=== PATIENT | female | born 1950 | race Caucasian/White ===

== ENCOUNTER 2016-08-22 18:57 | Inpatient (IN) | payer MEDICARE, OTHER ==
[2016-08-22] MEDS ORDERED: Aspirin 81mg Chewable Tab PO ONE (19:24)
[2016-08-22] MEDS ORDERED: Aspirin 81mg Chewable Tab ONE (19:30)
--- NOTE | 2016-08-22 19:36 | ED Physician Chart ---
Chief Complaint/HPI - Patient Information Date Seen:: 08/22/16 Time Seen:: 19:15 Chief Complaint:: CHEST PAIN X 3-4 HOURS History of Present Illness:: This 66-year-old female presents to the emergency department complaining of acute chest pain that began approximately 3-4 hours prior to her arrival. The pain is localized to the lower substernal area and radiates into her back. The course of the last 3-4 hours the pain has waxed and waned and is currently rated as an 8/10 in severity. The character of the pain is a pressure. She was unable to identify any precipitating, exacerbating or relieving factors. The patient has never experienced similar pain in the past and has never been to an emergency department with a complaint of chest pain. She has a past medical history of hypertension, lupus, rheumatoid arthritis and polymyositis. Patient is not diabetic and is unaware of any cholesterol problems or hyperlipidemia. She does not smoke or use alcohol. Over the past 2 days the patient has had nausea and diaphoresis which continued into today as well she has experienced no vomiting but does have decreased appetite. The patient has felt warm over the past 2 days but has not taken her temperature. There is no pleuritic component to the patient's chest pain. Allergies:: Allergies Allergy/AdvReac Type Severity Reaction Status Date / Time No Known Allergies Allergy Verified 08/22/16 19:06 Vitals:: Vital Signs - 8 hr 08/22/16 08/22/16 19:06 19:07 Temp 97.6 F HR 99 RR 17 BP 195/115 194/115 O2 Sat % 100 <Nicho Kauffman - Last Filed: 08/22/16 19:54> - Patient Information Allergies:: Allergies Allergy/AdvReac Type Severity Reaction Status Date / Time No Known Allergies Allergy Verified 08/22/16 19:06 Vitals:: Vital Signs - 8 hr 08/22/16 08/22/16 08/22/16 19:06 19:07 19:37 Temp 97.6 F HR 99 103 RR 17 BP 195/115 194/115 195/111 O2 Sat % 100 08/22/16 08/22/16 19:44 19:45 Temp HR 98 98 RR 16 BP 160/88 160/88 O2 Sat % 96 <Lam Lombardo - Last Filed: 08/22/16 20:35> Review of Systems - Review of Systems General/Constitutional: Chills, Weakness, Diaphoresis, No edema Skin: No skin lesions, No rash, No bruising Head: No headache, No light-headedness Eyes: No loss of vision, No diplopia ENT: No earache, No nasal drainage, Sore throat, No tinnitus Neck: Neck pain, No neck pain, No swelling, No thyromegaly, No stiffness, Mass noted Cardio Vascular: Chest pain, Palpitations Pulmonary: Cough, No sputum, No wheezing, Other (the patient has mild if any respiratory distress.) GI: Nausea, No vomiting, No diarrhea, No pain G/U: No dysuria, No frequency, No hematuria 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 Musculoskeletal: Back pain, Muscle pain, Other (the patient has rheumatoid arthritis with generalized joint pain.) Allergic/Immuno: No urticaria, No angioedema Neurological: No syncope, No focal symptoms, Weakness (weakness is generalized.) , No paresthesia, No headache, No seizure, No confusion, No vertigo <Nicho Kauffman - Last Filed: 08/22/16 19:54> Past Medical History - Past Medical History Past Medical History: Arthritis, Other (see HPI for past medical history.) Social History: Non Smoker, No Alcohol, No Drug Use, Other (patient has undergone lung biopsy.) Surgical History: Cholecystectomy Medication: Reviewed <Nicho Kauffman - Last Filed: 08/22/16 19:54> Family Medical History - Family Member Mother History Unknown: Yes Ethnicity: <Nicho Kauffman - Last Filed: 08/22/16 19:54> Physical Exam - Physical Examination General/Constitutional: Awake, Well-developed, well-nourished, Alert, GCS 15, Non-toxic appearing, Ambulatory Other Gen/Cons comments:: Patient appears to be in moderate discomfort secondary to her complaint of chest pain. Head: Atraumatic Eyes: Lids, conjuctiva normal, PERRL, EOMI Other Eyes comments:: No arcus. Skin: No rash, No skin lesions, No ecchymosis, No lymphadenopathy Other Skin comments:: Diaphoretic. ENMT: External ears, nose nl, Nasal exam nl, Lips, teeth, gums nl, Oropharynx nl , Tonsils nl Neck: Nontender, No JVD, No nuchal rigidity, No mass, No stridor Respiratory: Nl effort/Exclusion Other Respiratory comments:: Patient has coarse rhonchi in the right lung base. Cardio Vascular: RRR, No murmur, gallop, rubs, NL S1 S2 Other Cardio Vascular comments:: Excellent pulses in all 4 extremities. GI: No tenderness/rebounding/guarding, No organomegaly, No hernia, Normal BS's, Nondistended, No mass/bruits, No McBurney tenderness : No CVA tenderness (patient has mild calf tenderness bilaterally with negative Homans signs. No peripheral edema.) Extremities: Full ROM, normal strength in all extremities, No edema Neuro/Psych: Alert/oriented, Normal sensory exam, Normal motor strength, Judgement/insight normal, Mood normal, No focal deficits Misc: Normal back, No paraspinal tenderness <Nicho Kauffman - Last Filed: 08/22/16 19:54> Labs/Radiology/EKG Results - EKG Interpretations Rhythm: normal sinus rhythm with no ectopy. [place]: axis is normal. Rate: 96 Comments:: No Q waves or ST segment elevation or depression. Impression: No acute ischemic findings. <Nicho Kauffman - Last Filed: 08/22/16 19:54> - Lab Results Results: Laboratory Tests 08/22/16 08/22/16 08/22/16 19:39 19:39 19:39 WBC 5.5 RBC 5.15 Hgb 11.1 L Hct 34.7 L MCV 67.4 L MCH 21.6 L MCHC Differential 32.0 RDW 13.9 Plt Count 242 MPV 8.0 Sodium 120 L Potassium 3.4 L Chloride 86 L Carbon Dioxide 25.8 Anion Gap 11.6 BUN 9 Creatinine 0.3 L Est GFR ( Amer) > 60.0 Est GFR (Non-Af Amer) > 60.0 BUN/Creatinine Ratio 30.0 Glucose 123 H Calcium 9.3 Troponin I 0.01 B-Natriuretic Peptide 41.3 - Radiology Results Results: Single AP VIEW Portable Chest X-ray was interpreted independently and contemporaneously by Jon Lombardo MD: No cardiomegaly Normal mediastinum No lung infiltrates No pneumothorax No soft tissue or bony abnormalities <Lam Lombardo - Last Filed: 08/22/16 20:35> ED Septic Shock - <6hrs of presentation: Vital Signs: Vital Signs - 8 hr 08/22/16 08/22/16 19:06 19:07 Temp 97.6 F HR 99 RR 17 BP 195/115 194/115 O2 Sat % 100 <Nicho Kauffman - Last Filed: 08/22/16 19:54> - . Is Septic Shock (SBP<90, OR Lactate>4 mmol\L) present?: No - <6hrs of presentation: Vital Signs: Vital Signs - 8 hr 08/22/16 08/22/16 08/22/16 19:06 19:07 19:37 Temp 97.6 F HR 99 103 RR 17 BP 195/115 194/115 195/111 O2 Sat % 100 08/22/16 08/22/16 19:44 19:45 Temp HR 98 98 RR 16 BP 160/88 160/88 O2 Sat % 96 <Lam Lombardo - Last Filed: 08/22/16 20:35> Reassessment (Disposition) - Reassessment Reassessment:: Handed off to me at change of shift Patient has chest pain rule out ACS. Pain has improved after receiving 2 sublingual nitroglycerin. Initial troponins are unremarkable. Patient has sodium of 120. She is taking hydrochlorothiazide. This is most likely the cause of her hyponatremia. Discussed case with a physician who will admit to his service for further workup and treatment. Patient to be admitted with severe hyponatremia. - Diagnosis Diagnosis:: Chest pain rule out ACS Hyponatremia, severe Hypertensive urgency - Patient Disposition Discharge/Transfer:: Acute Care w/in this hosp Admitted to:: Telemetry Admitting Medical Physician:: Bishnu Bass Time:: 20:31 Condition at Disposition:: Improved <Lam Lombardo - Last Filed: 08/22/16 20:35> ED Discharge Plan <Nicho Kauffman - Last Filed: 08/22/16 19:54> <Lam Lombardo - Last Filed: 08/22/16 20:35> - Patient Disposition Admit/Discharge/Transfer: Acute Care w/in this hosp Condition at Disposition: Stable
[2016-08-22 19:41] VITALS: BP 195/115
[2016-08-22] MEDS ORDERED: Labetalol 5 mg/mL 20 mL Vial IVP STA (19:42)
[2016-08-22 19:50] LABS: HEMATOCRIT 34.7 % (35.0-45.0); HEMOGLOBIN 11.1 gm/dL (11.7-16.1); MEAN CORPUSCULAR HEMOGLOBIN 21.6 pg (27.0-31.0); PLATELET COUNT 242 Th/cmm (150-400); RED BLOOD COUNT 5.15 Mil/cmm (3.80-5.20); RED CELL DISTRIBUTION WIDTH 13.9 % (11.5-20.0); WHITE BLOOD COUNT 5.5 Th/cmm (4.8-10.8)
[2016-08-22 19:54] LABS: MEAN CELL VOLUME 67.4 fl (81-100)
[2016-08-22 20:01] LABS: ANION GAP 11.6 (7.0-16.0); BUN - UREA NITROGEN 9 mg/dL (7-25); CALCIUM SERUM 9.3 mg/dL (8.6-10.3); CARBON DIOXIDE 25.8 mEq/L (21.0-31.0); CHLORIDE 86 mEq/L (98-107); CREATININE - SERUM 0.3 mg/dL (0.6-1.2); GLUCOSE 123 mg/dL (70-105); POTASSIUM SERUM 3.4 mEq/L (3.5-5.1)
[2016-08-22 20:02] LABS: TROP I 0.01 ng/mL (0.01-0.05)
[2016-08-22 20:11] LABS: SODIUM SERUM 120 mEq/L (136-145)
[2016-08-22 20:12] LABS: BNP 41.3 pg/mL (5.0-100.0)
[2016-08-22] MEDS ORDERED: Sodium Chloride 0.9% 1,000 ML IV ONE (20:29)
[2016-08-22 20:30] LABS: ANISOCYTOSIS 1+; EOSINOPHIL 3 % (0-5); MICROCYTOSIS 2+; NEUTROPHILS 74 % (40-80); PLATELET MORPHOLOGY NORMAL (NORMAL); TOTAL CELLS COUNTED 100
[2016-08-22 20:31] LABS: PLATELET ESTIMATE ADEQUATE (NORMAL)
--- NOTE | 2016-08-22 21:33 | Admit Criteria Form ---
Admit Criteria Forms - Admit Criteria Diagnosis: CHEST PAIN Clinical Indications for Admission to Inpatient Care (Place 'X' for any and all applicable criteria): Admission is indicated for chest pain and ANY ONE of the following(1)(2)(3)(4)(5 ): [X]I. Angina with acute coronary syndrome (Also use Myocardial Infarction or Angina guideline) [ ]II. Hemodynamic instability [ ]III. Angina needing acute intervention as indicated by ALL of the following( 11)(12): [ ]a) Unstable angina is present as indicated by angina that is ANY ONE of the following: [ ]i) New onset [ ]ii) Nocturnal [ ]iii) Prolonged at rest [ ]iv) Progressive [ ]b) Angina warrants acute intervention as indicated by ANY ONE of the following: [ ]i) Recurrent angina (e.g, not responding as previously to treatment) [ ]ii) Angina at rest or with low-level activities despite initial medical therapy [ ]iii) New or presumably new ST-segment depression on ECG [ ]iv) Signs or symptoms of heart failure (eg, dyspnea, pulmonary edema) [ ]v) New or worsening mitral regurgitation [ ]vi) Hemodynamic instability [ ]vii) Dangerous arrhythmia (eg, sustained ventricular tachycardia) [ ]viii) History of percutaneous coronary intervention within 6 months [ ]ix) History of coronary artery bypass graft surgery [ ]x) THAIS risk score of 2 or greater[A] [ ]xi) History of Diabetes(14) [ ]xii) High-risk cardiac ischemia findings on noninvasive testing (e.g, echocardiogram, treadmill testing, nuclear scan) [ ]xiii) Chronic renal insufficiency (ie, estimated GFR less than 60 mL/min/1.732m) [ ]xiv) Left ventricular ejection fraction less than 40% [ ]IV. Evidence of RI (eg, cardiac biomarkers positive, ST-segment elevation on ECG) also use Myocardial Infarction Criteria Form. [ ]V. Pulmonary edema [ ]. Respiratory distress [ ]VII. Chest pain indicative of serious diagnosis other than coronary artery disease (eg, aortic dissection) [ ]VIII. Contraindications and/or Inappropriate clinical situations for Observational Care in patients with Chest Pain, when ANY ONE of the following is required: [ ]a) Patient with risk factor for pulmonary embolism, acute coronary syndrome and myocardial infarction (18) [ ]b) Patient with Pulmonary embolism require an average LOS of 4.3 days, therefore emergency department observation management is inappropriate 18,23 [ ]c) Painful condition/s in the elderly, have the highest rate of recidivism after emergency department observation management (10.8%) 20,21,22 [ ]d) Elevated cardiac biomarker requires intensive and exhaustive care (19) [ ]IX. General contraindications and/or Inappropriate clinical situations for Observational Care in patients with Chest Pain, when ANY ONE of the following is required: [ ]a) Prediction of prolongation of LOS based on ANY ONE of the following may be considered as a contraindication for observational care 2, 3, 4, 5, 6, 7, 8, 9, 10, 11 [ ]i) Age > 65 yrs. [ ]ii) Patient arriving by ambulance [ ]iii) Patient with high acuity [ ]iv) Patient requiring vital sign monitoring [ ]v) Patient on IV medication [ ]b) Systolic blood pressures 180mmHg 3,12 [ ]c) Patient with altered mental status including delirium and other alteration of consciousness, (3) [ ]d) Patient whose discharge disposition will be to a custodial home or rehabilitation home should not be managed in Emergency Department Observation Unit. CMS rule requires 3 days hospital stay before such placement. 3,13 [ ]e) Patient with failure to thrive due to broad array of etiologies 3,16,17 [ ]f) Inability to ambulate 3,14 Extended stay beyond goal length of stay may be needed for (1)(28): [ ]a) Specific condition diagnosed after evaluation (eg, pulmonary embolism, aortic dissection) [ ]b) Unstable angina [ ]c) Continued suspicion of acute coronary syndrome with inability to complete needed cardiac evaluation (eg, patient clinically unable to undergo stress testing) [ ]d) Myocardial infarction (Contents from ANGINA and CHEST PAIN clinical indications for admission to inpatient care have been integrated in this form) The original [employer] content created by [employer] has been revised. The portions of the content which have been revised are identified through the use of italic text or in bold, and [email or web address] has neither reviewed nor approved the modified material. All other unmodified content is copyright [employer]. Please see references footnoted in the original [facility] edition 2016 Admit Criteria Met?: Yes
[2016-08-22] MEDS: Sodium Chloride 0.9% 1,000 ML IV SCH (22:15)
[2016-08-22] MEDS ORDERED: Hydrocodone/APAP 5mg/325mg Tab PO PRN (22:36)
[2016-08-22] MEDS ORDERED: Maalox 30 mL Cup PO PRN (22:36)
[2016-08-22] MEDS ORDERED: Magnesium Hydroxide (MOM) 30 mL UDC PO PRN (22:36)
[2016-08-22] MEDS ORDERED: Hydrocodone/APAP 10 mg/325 mg Tab PO PRN (22:36)
[2016-08-23 07:32] LABS: ANION GAP 10.4 (7.0-16.0); BUN - UREA NITROGEN 7 mg/dL (7-25); BUN/CREATININE RATIO 17.5; CALCIUM SERUM 8.8 mg/dL (8.6-10.3); CARBON DIOXIDE 26.6 mEq/L (21.0-31.0); CHLORIDE 96 mEq/L (98-107); CREATININE - SERUM 0.4 mg/dL (0.6-1.2); GLUCOSE 101 mg/dL (70-105); SODIUM SERUM 129 mEq/L (136-145)
[2016-08-23 08:29] LABS: HEMATOCRIT 33.1 % (35.0-45.0); HEMOGLOBIN 10.6 gm/dL (11.7-16.1); MEAN CORPUSCULAR HGB CONC 32.2 pg (28.0-36.0); MEAN PLATELET VOLUME 9.1 fl; PLATELET COUNT 241 Th/cmm (150-400); RED BLOOD COUNT 4.97 Mil/cmm (3.80-5.20); RED CELL DISTRIBUTION WIDTH 13.4 % (11.5-20.0); WHITE BLOOD COUNT 5.4 Th/cmm (4.8-10.8)
[2016-08-23 08:30] LABS: MEAN CELL VOLUME 66.5 fl (81-100); MEAN CORPUSCULAR HEMOGLOBIN 21.4 pg (27.0-31.0)
--- NOTE | 2016-08-23 09:45 | Diagnostic Imaging Report ---
Portable chest x-ray HISTORY: Pain The heart size is difficult to assess with portable technique in a poor inspiration, but appears generous. Atherosclerotic calcification seen in the aorta. Allowing for the poor inspiration, no focal pulmonary processes are seen. IMPRESSION: 1. Allowing for a poor inspiration, no acute focal pulmonary processes 2. Suggestion of generous heart size with atherosclerotic vascular changes
[2016-08-23 10:41] LABS: BAND NEUTROPHILE 8 % (0-10); EOSINOPHIL 2 % (0-5); NEUTROPHILS 68 % (40-80); TOTAL CELLS COUNTED 100
[2016-08-23 10:49] LABS: PLATELET ESTIMATE ADEQUATE (NORMAL); PLATELET MORPHOLOGY NORMAL (NORMAL)
[2016-08-23 10:50] LABS: ANISOCYTOSIS 1+; MICROCYTOSIS 3+; OVALOCYTES 1+; POIKILOCYTOSIS 1+
--- NOTE | 2016-08-23 14:03 | History & Physical ---
CHIEF COMPLAINT: Chest pain. HISTORY OF PRESENT ILLNESS: The patient is a 66-year-old female presented to the ER complaining of acute chest pain that began prior to arrival. The patient's pain is located in the left substernal area and radiates to her back. The patient states the pain wax and wane, and is 8/10 in nature. The pain is pressure like. The patient denies any aggravating or relieving factors. No prior history of chest pain in the past. The patient also complains of nausea and diaphoresis and decreased appetite. The patient complains of elevated temperature for last 2 days. ALLERGIES: No known allergies. MEDICATIONS: See medication reconciliation form. REVIEW OF SYSTEMS: See history of present illness. FAMILY HISTORY: Not pertinent. SOCIAL HISTORY: No reports of smoking, drinking or drug use. PAST MEDICAL HISTORY: Hypertension, lupus, rheumatoid arthritis, polymyositis. PAST SURGICAL HISTORY: Cholecystectomy. PHYSICAL EXAMINATION: GENERAL: The patient is awake, alert, nontoxic in appearance. VITAL SIGNS: On admission, temperature 97.6, pulse 99, blood pressure is 195/115, respiratory rate 17 and O2 sat 100%. GENERAL: The patient is awake, alert, nontoxic in appearance. HEENT: Normocephalic, atraumatic. Extraocular movements intact. Pupils are reactive to light. Oropharynx clear. NECK: Supple. No thyromegaly. No lymphadenopathy. RESPIRATORY: Clear. No wheeze or rhonchi. CARDIOVASCULAR: S1, S2. No murmurs, rubs, gallops. ABDOMEN: Soft, nontender, nondistended. Positive bowel sounds. GENITOURINARY: No CVA tenderness. No suprapubic tenderness. BACK: No midline tenderness. EXTREMITIES: Equal pulses bilaterally. No cyanosis, clubbing or edema. SKIN: Negative. PSYCHIATRIC: Negative. NEUROLOGIC: Cranial nerves intact. Sensation is intact. Motor is intact. Bilateral muscle strength normal. LABORATORY DATA: On admission are as follows: Hematology: WBC of 5.5, hemoglobin 8.1, hematocrit 24.7, platelet count of 242, 13% lymphocytes. Chemistry: Sodium is 120, potassium 3.4, chloride 86, bicarbonate 25, anion gap 11, BUN 9, creatinine 0.3. GFR is more than 60. Glucose 123, calcium 9.3. Troponin is 0.01. BNP is 41.3. RADIOLOGY: Chest x-ray shows no acute focal pulmonary process. Atherosclerotic vascular changes. IMPRESSION: 1. Chest pain. 2. Rule out acute coronary syndrome. 3. Hypertension (uncontrolled). 4. Systemic lupus erythematosus. 5. Rheumatoid arthritis. 6. Polymyositis. 7. History of cholecystectomy. 8. Anemia. 9. Hyponatremia. 10. Hypokalemia. 11. Hyperglycemia. PLAN: The patient admitted to telemetry unit, seen on admission by Dr. Hanane Bass. Cardiology consultation with Dr. Caron Bass. Endocrine consultation with Dr. Granados. We will obtain further labs and consultation needed. JOB# [id number] [facility]
[2016-08-23] MEDS: DEXTROMETHORPHAN PO PRN (17:18)
[2016-08-23] MEDS: GUAIFENESIN PO PRN (17:18)
[2016-08-24] MEDS: Sodium Chloride 0.9% 1,000 ML IV SCH ×2 (01:01→21:12)
[2016-08-24 07:36] LABS: HEMATOCRIT 30.9 % (35.0-45.0); HEMOGLOBIN 10.1 gm/dL (11.7-16.1); MEAN CORPUSCULAR HEMOGLOBIN 21.7 pg (27.0-31.0); MEAN CORPUSCULAR HGB CONC 32.6 pg (28.0-36.0); PLATELET COUNT 249 Th/cmm (150-400); RED BLOOD COUNT 4.64 Mil/cmm (3.80-5.20); RED CELL DISTRIBUTION WIDTH 13.9 % (11.5-20.0)
[2016-08-24 07:52] LABS: MEAN CELL VOLUME 66.6 fl (81-100); WHITE BLOOD COUNT 3.9 Th/cmm (4.8-10.8)
[2016-08-24 08:05] LABS: ALKALINE PHOSPHATASE 32 U/L (34-104); ANION GAP 10.9 (7.0-16.0); BILIRUBIN,TOTAL 0.9 mg/dL (0.3-1.0); BUN - UREA NITROGEN 9 mg/dL (7-25); CARBON DIOXIDE 25.6 mEq/L (21.0-31.0); CHLORIDE 99 mEq/L (98-107); CHOLESTEROL 147 mg/dL (<200); CREATININE - SERUM 0.3 mg/dL (0.6-1.2); GLUCOSE 99 mg/dL (70-105); MAGNESIUM 1.9 mg/dL (1.9-2.7); POTASSIUM SERUM 3.5 mEq/L (3.5-5.1); SGOT 21 U/L (13-39); SGPT/ALT 15 U/L (7-52); SODIUM SERUM 132 mEq/L (136-145); TRIGLYCERIDES 61 mg/dL (<150); URIC ACID 2.1 mg/dL (2.3-6.6)
[2016-08-24] MEDS: DEXTROMETHORPHAN PO PRN (09:04)
[2016-08-24] MEDS: GUAIFENESIN PO PRN (09:04)
[2016-08-24 09:42] LABS: BAND NEUTROPHILE 1 % (0-10); BASOPHIL 1 % (0-3); EOSINOPHIL 3 % (0-5); NEUTROPHILS 59 % (40-80); TOTAL CELLS COUNTED 100
[2016-08-24 09:43] LABS: ANISOCYTOSIS 1+; MICROCYTOSIS 3+; PLATELET ESTIMATE ADEQUATE (NORMAL); PLATELET MORPHOLOGY NORMAL (NORMAL)
[2016-08-24] MEDS: Atorvastatin Calcium 10 MG TAB PO SCH (21:13)
--- NOTE | 2016-08-24 22:02 | Cardiology ---
M-Mode measurements are as follows. The aortic root dimension end diastole is 2.6 cm. Aortic valve systolic stiffness is 1.7 cm. Left atrium dimension in systole is 2.4 cm. Right ventricular dimension looks normal. The EP septal separation is 0.5 cm. Mitral valve E to A ration is 0.59. Left ventricular dimension end diastole is 4.6 cm and end systole 2.9 cm with ejection fraction between 60% to 65%. LV posterior wall thickness in end diastole is 1.3 cm and intraventricular septal thickness in end diastole 1.4 cm. By measurements the cardiac output is 6.227 L/minute and the stroke index is 41.69 mL/square meter, left ventricular outflow tract systolic gradient is 6.66 mmHg and velocity is 1.29 meter per second. Left atrial measurements are normal. Aortic valve area Vmax is 1.36 cm2/meter square. Aortic valve peak gradient is 10.25 mmHg. Aortic valve area is 2.2 cm2. Mitral valve Vmax is 1.5 meter per second and Vmax is 1.0 meter per second. Mitral valve area looks normal. Tricuspid and pulmonic valves are also normal. M-Mode and 2D shows the LV dimension and second wall motions are normal. The aortic valve looks slightly sclerotic with acute function in diastole and systole. Mitral valve annulus is calcified. Leaflets are slightly thickened with normal function in diastole as well as in systole. Tricuspid valve looks normal. Pulmonic valve is not well visualized, but looks normal. The mitral valve diastolic function is impaired suggestive of grade 1 diastolic dysfunction. Doppler measurements are showing that there is trivial mitral regurgitation with tricuspid regurge present. No regurgitation is seen at the aortic valve or mitral valve. Tricuspid valve is okay. CONCLUSIONS: 1. LV dimension and second wall motion are normal, ejection fraction of between 60% to 65%. 2. Left ventricular hypertrophy present with end diastole dysfunction. 3. Calcified aortic valve without any stenosis. 4. Mitral valve is calcified and thickened leaflets within normal function. Otherwise normal study for the age. JOB# [id number] [facility]
--- NOTE | 2016-08-25 03:09 | Consultation ---
REFERRING PHYSICIAN: Dr. Hanane Bass. HISTORY OF PRESENT ILLNESS: This patient is seen on courtesy of Dr. Hanane Bass as the patient is coming with chest pain. According to the history obtained from the patient that she was resting and all of a sudden she felt this lower part of sternal pain which was a sharp pain, lasted less than a minute. She did not feel any other associated symptoms with that. There was no relationship with anything. She denies any other associated symptoms with that. She denies feeling nausea, vomiting, short of breath, dizzy, lightheaded, loss of consciousness. She also denies of any provoking factor. She never had this type of pain before. Because of the pain and feeling these problems, came to the Emergency Room. PAST MEDICAL HISTORY: History of hypertension, has lupus, rheumatoid arthritis and polymyositis. PAST SURGICAL HISTORY: Had a cholecystectomy done in April last year. PERSONAL HISTORY: Nonsmoker, nonalcoholic. No drug abuse. ALLERGIES: No known drug allergies. REVIEW OF SYSTEMS: Nothing contributory from cardiac point of view except as mentioned above. MEDICATIONS: Reviewed. FAMILY HISTORY: Nothing contributory. PHYSICAL EXAMINATION: GENERAL: The patient is a 66-year-old female, fully alert, oriented, not in acute distress. VITAL SIGNS: Stable, within normal range. HEENT: Normal. NECK: Supple. JVP is flat. No lymphadenopathy. CHEST: Equal bilaterally. No chest wall tenderness. LUNGS: Clinically clear. CARDIOVASCULAR: PMI not palpable. Heart sounds; the S1 is slightly loud, S2 is loud. There is a systolic ejection murmur, is present in aortic area, which is 2/6 grade in aortic area and on left sternal border localized. No radiation. S4 is soft and best audible at apex. No S3. No rub is appreciated. ABDOMEN: Normal. CENTRAL NERVOUS SYSTEM: Grossly normal. EXTREMITIES: No edema. No cyanosis. No clubbing. Peripheral pulsations are equal bilaterally. LABORATORY DATA: CBC and troponin are all normal. The EKG is normal sinus rhythm. Normal EKG. No acute changes were seen. A repeat EKG on 08/23 compared with the 08/22 EKG was also normal. Echocardiogram shows that LV dimension and functions were normal. Ejection fraction about 60% to 65%. Aortic valve is calcified without any stenosis. Diastolic dysfunction grade 1. The mitral valve annulus was calcified, had thickened leaflet without any major mitral valve disorder. No pericardial effusion present. IMPRESSION: Chest pain, slightly atypical chest pain, doubt acute coronary syndrome, but to be evaluated. Cardiac risk factors are female, age, hypertension, possible dyslipidemia. Aortic valve calcification without stenosis. Mitral valve dysfunction with trace of mitral regurgitation. Grade 1 diastolic dysfunction with left ventricular hypertrophy. Secondary to hypertensive disease. Hypertension, controlled. PLAN: I agree with present management and further cardiac workup and management as needed. I discussed with her about her medications and to continue with controlled hypertension, continue with Lopressor and Cozaar, and also pain management. I would like to do the Lipitor, the cholesterol therapy. I will arrange a treadmill stress test before her discharge if possible. Otherwise, it could be arranged on outpatient basis. Thank you very much Dr. Goetz for your kind referral and I will follow along with you during her acute cardiac problem. JOB# [id number]
[2016-08-25 04:40] LABS: SODIUM 24HR URINE 279 mmol/24H (40-220); URINE COLLECTION TIME 24 hours
[2016-08-25] MEDS: Sodium Chloride 0.9% 1,000 ML IV SCH ×2 (05:32→09:02)
[2016-08-25] MEDS: Atorvastatin Calcium 10 MG TAB PO SCH ×2 (05:33→20:52)
[2016-08-25 07:35] LABS: BUN - UREA NITROGEN 9 mg/dL (7-25); BUN/CREATININE RATIO 22.5; CALCIUM SERUM 9.1 mg/dL (8.6-10.3); CARBON DIOXIDE 26.3 mEq/L (21.0-31.0); CHLORIDE 98 mEq/L (98-107); CREATININE - SERUM 0.4 mg/dL (0.6-1.2); GLUCOSE 95 mg/dL (70-105); POTASSIUM SERUM 3.3 mEq/L (3.5-5.1); SODIUM SERUM 133 mEq/L (136-145)
[2016-08-25 07:50] LABS: HEMOGLOBIN 11.1 gm/dL (11.7-16.1); MEAN CORPUSCULAR HEMOGLOBIN 21.4 pg (27.0-31.0); MEAN CORPUSCULAR HGB CONC 32.3 pg (28.0-36.0); MEAN PLATELET VOLUME 8.5 fl; PLATELET COUNT 295 Th/cmm (150-400); RED BLOOD COUNT 5.17 Mil/cmm (3.80-5.20); RED CELL DISTRIBUTION WIDTH 13.8 % (11.5-20.0)
[2016-08-25 07:59] LABS: HEMATOCRIT 34.3 % (35.0-45.0); MEAN CELL VOLUME 66.2 fl (81-100)
[2016-08-25 08:17] LABS: URINE BACTERIA NONE SEEN /hpf (NONE SEEN); URINE BILIRUBIN NEGATIVE (NEGATIVE); URINE BLOOD NEGATIVE (NEGATIVE); URINE COLOR YELLOW; URINE EPITHELIAL CELLS OCCASIONAL /lpf (FEW); URINE GLUCOSE (UA) NEGATIVE (NEGATIVE); URINE KETONE NEGATIVE (NEGATIVE); URINE PH 6.5; URINE PROTEIN NEGATIVE (NEGATIVE); URINE RBC 0-1 /hpf (0-5); URINE UROBILINOGEN 0.2 E.U./dL (0.2 - 1.0); URINE WBC NONE SEEN /hpf (0-5)
[2016-08-25 10:14] LABS: EOSINOPHIL 9 % (0-5); MICROCYTOSIS 3+; NEUTROPHILS 52 % (40-80); PLATELET ESTIMATE ADEQUATE (NORMAL); PLATELET MORPHOLOGY NORMAL (NORMAL); TOTAL CELLS COUNTED 100
[2016-08-25] MEDS: GUAIFENESIN PO PRN (10:33)
[2016-08-25] MEDS: DEXTROMETHORPHAN PO PRN (10:33)
--- NOTE | 2016-08-25 14:13 | Diagnostic Imaging Report ---
CHEST X-RAY: AP view INDICATION: Post surgery, fever, shortness of breath COMPARISON: 08/22/2016 FINDINGS: Chronic lung changes are seen with increased bibasilar lung markings. No focal consolidation or effusions. Heart size is within normal limits. Atherosclerosis is noted. IMPRESSION: Chronic lung changes with increased bibasal lung markings also likely chronic and may be due to subsegmental atelectasis versus scarring. No focal consolidation is identified. Note, however, infiltrate of the left lung base cannot be completely excluded.
--- NOTE | 2016-08-25 18:48 | Progress Notes ---
SUBJECTIVE: The patient is awake and alert. Reports no chest pain. No further shortness of breath. OBJECTIVE: VITAL SIGNS: Temperature 96.9, pulse 89, respiratory rate 18, patient on room air. CARDIOVASCULAR: S1 and S2. RESPIRATORY: Clear. GASTROINTESTINAL: Soft. Positive bowel sounds. LABORATORY DATA: Hematology: WBC 3.9, hemoglobin 10.1, hematocrit per labs, platelet count of 249, 15% monocytes. Chemistry: Sodium 132, potassium per labs, chloride 99, bicarbonate 25, anion gap of 10.9, BUN 9, creatinine per labs. GFR is 160. Glucose is 99, uric acid per labs, calcium 9.0, phosphorus 2.0, magnesium 1.9, total bili 0.9. AST 21, ALT 15, alkaline phosphatase 32, albumin 3.6, globulin 3.7. Lipid panel: Triglycerides 61, LDL 104, HDL is 42. Thyroid panel: T4 is 8.59, T3 is 0.66, and TSH is 0.7. MICROBIOLOGY: MRSA screening from 08/22/2016 negative. RADIOLOGY: No new radiology results. ASSESSMENT: 1. Leukopenia. 2. Anemia. 3. Hyponatremia. 7. Chest pain (resolved). 8. Hypertension (controlled). 9. Systemic lupus erythematosus. 10. Rheumatoid arthritis. 11. Polymyositis. 12. History of cholecystectomy. PLAN: Continue current medication and treatment. Obtain labs in a.m. Continue IV fluids. We will obtain Hematology consultation if white blood count remains depressed. JOB# [id number] [facility]
[2016-08-25] MEDS ORDERED: Potassium Chloride 20 mEq ER Tab PO ONE (19:43)
[2016-08-26] MEDS: Sodium Chloride 0.9% 1,000 ML IV SCH (06:11)
--- NOTE | 2016-08-26 09:19 | Diagnostic Imaging Report ---
CHEST X-RAY: AP view INDICATION: Fever, shortness of breath COMPARISON: 08/25/2016 FINDINGS: Chronic changes are seen with increased left basal lung markings. No focal consolidation or effusions. Heart size is borderline prominent. IMPRESSION: Increased left basal lung markings favoring chronic etiology and possible scarring. Superimposed focal infiltrate is considered less likely. Otherwise no focal consolidation identified.
--- NOTE | 2016-08-26 22:28 | Discharge Summary ---
DISCHARGE DIAGNOSES: 1. Leukopenia. 2. Anemia. 3. Hyponatremia. 4. Chest pain (resolved). 5. Hypertension. 6. Systemic lupus erythematosus. 7. Rheumatoid arthritis. 8. Polymyositis. HOSPITAL COURSE: The patient is a 66-year-old female who initially presented to the ER complaining of chest pain. The patient's admitting diagnoses: 1. Chest pain. 2. Acute coronary syndrome. 3. Hypertension, controlled. 4. Systemic lupus erythematosus. 5. Rheumatoid arthritis and polymyositis. 6. History of cholecystectomy. 7. Hyponatremia. 8. Hyperkalemia. 9. Hyperglycemia. The patient was admitted to Telemetry Unit. Cardiology consultation team, Dr. Caron Bass. Endocrinology consultation team with Dr. Granados. The patient has 2 cardiac enzymes done with most recent troponin less than 0.01. The patient was placed on IV fluids for hyponatremia. The patient's sodium levels have improved. The patient, since admission, had no further reports of chest pain. The patient has been cleared by Cardiology for discharge home. The patient will be discharged home today. The patient will continue home medications except for hydrochlorothiazide. The patient will be given prescription for new medications. The patient will follow up back with her PMD/PCP in 1 weeks' time. [facility]# [id number] DELILAH
--- NOTE | 2016-08-27 04:31 | Progress Notes ---
SUBJECTIVE: The patient is awake, alert. The patient denies any chest pain. The patient denies shortness of breath. OBJECTIVE: VITAL SIGNS: Temperature is 97.8, pulse of 87, blood pressure per nursing, respiratory rate 18 and O2 saturation 99% on room air. CARDIOVASCULAR: S1 and S2. RESPIRATORY: Clear. GASTROINTESTINAL: Soft. Positive bowel sounds. LABORATORY DATA: Hematology: WBC 4.0, hemoglobin 11.1, hematocrit 34.3, platelet count of 295, 9% monocytes. Chemistry: Sodium per labs, potassium 3.3 , chloride 98, bicarb 26, anion gap 12, BUN 9, creatinine 0.4, GFR is more than 60, glucose 95, calcium 9.1. Urinalysis negative. Urine electrolytes potassium 8.0. Microbiology: MRSA screen from 08/22/2016 negative. RADIOLOGY: Chest x-ray from 08/25/2016 shows chronic lung changes, increased bibasilar lung markings, likely chronic scarring. No focal consolidation identified. Note, however, infiltrate of the left lung base cannot be completely excluded. ASSESSMENT: 1. Leukopenia. 2. Anemia. 5. Chest pain, resolved. 6. Hypertension (uncontrolled). 7. Systemic lupus erythematosus. 8. Rheumatoid arthritis. 9. Polymyositis. 10. History of cholecystectomy. PLAN: Continue current medication and treatment. Obtain labs in a.m. Continue IV fluids. The patient was planned for discharge, but held due to the patient's uncontrolled blood pressure. JOB# [id number] [facility]
--- NOTE | 2016-08-27 04:31 | Progress Notes ---
SUBJECTIVE: The patient is awake and alert. The patient denies chest pain. The patient denies any shortness of breath. The patient is on IV fluids. OBJECTIVE: VITAL SIGNS: Temperature is 97.8, pulse of 87, blood pressure per nursing, respirations 18 and O2 saturation on room air. CARDIOVASCULAR: S1 and S2. RESPIRATORY: Clear. ABDOMEN: Soft. Positive bowel sounds. LABORATORY DATA: No labs for today. RADIOLOGY TESTS: Chest x-ray from 08/26/2016, shows left basal marking, superimposed infiltrate considered less likely, otherwise no focal consolidation identified. ASSESSMENT: 1. Leukopenia. 2. Anemia. 6. Hypertension. 7. Leukocytosis. 8. Polyarthritis and polymyositis PLAN: Continue current medication and treatment. 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 We will discuss with cardiology regarding possible discharge. JOB# [id number] [facility]
== END 2016-08-26 14:15 | disposition home or self-care (01) | DRG 641 ==
LOC: ER 18:57 → TELE 20:55
PROVIDERS: ADMIT Preventive Medicine Preventive Medicine/Occupational Environmental Medicine; ATTEND Preventive Medicine Preventive Medicine/Occupational Environmental Medicine
DX: E87.1 Hypo-osmolality and hyponatremia (principal); M33.20 Polymyositis, organ involvement unspecified; M32.9 Systemic lupus erythematosus, unspecified; I25.10 Atherosclerotic heart disease of native coronary artery without angina pectoris; R07.9 Chest pain, unspecified; M06.9 Rheumatoid arthritis, unspecified; D64.9 Anemia, unspecified; E87.6 Hypokalemia; R73.9 Hyperglycemia, unspecified; I16.0 Hypertensive urgency; I10 Essential (primary) hypertension; I70.0 Atherosclerosis of aorta; I51.7 Cardiomegaly; I34.0 Nonrheumatic mitral (valve) insufficiency; M13.0 Polyarthritis, unspecified; D72.819 Decreased white blood cell count, unspecified; Z90.49 Acquired absence of other specified parts of digestive tract
CPT/HCPCS: 36415-UA; 71010-TC; 80048-TC; 80053-TC; 80061-TC; 81001-TC; 81050-TC; 82533-90; 82550-TC; 83735-TC; 83880-TC; 83930-90; 83935-90; 84100-TC; 84133-TC; 84300-TC; 84436-TC; 84439-90; 84443-TC; 84479-TC; 84484-TC; 84550-TC; 85007-TC; 85027-TC; 90799; 93005; J7030; J7512; Q0162; Z7610